=== PATIENT | female | born 1950 | race Caucasian/White ===

== ENCOUNTER 2017-04-21 14:44 | Emergency (ER) | payer OTHER ==
[~2017-04-21] VITALS: Ht 157.5 cm; Wt 83.9 kg
[2017-04-21] MEDS ORDERED: LIDOCAINE 1%-EPI 1:100,000 50 ML VIAL IJ ONE (15:00)
[2017-04-21 15:01] VITALS: BP 126/81
== END 2017-04-21 15:20 | disposition home or self-care (01) ==
LOC: ER 14:46
DX: S61.231A Puncture wound without foreign body of left index finger without damage to nail, initial encounter (principal); E78.5 Hyperlipidemia, unspecified; I10 Essential (primary) hypertension; Z90.89 Acquired absence of other organs; Z98.890 Other specified postprocedural states; Z88.8 Allergy status to other drugs, medicaments and biological substances; W27.2XXA Contact with scissors, initial encounter; Y93.89 Activity, other specified; Y92.89 Other specified places as the place of occurrence of the external cause; Y99.9 Unspecified external cause status
CPT/HCPCS: 99283; A4606; J3490; Z7610

== ENCOUNTER 2017-10-14 19:34 | Inpatient (IN) | payer OTHER ==
[~2017-10-14] VITALS: Ht 157.5 cm; Wt 91.2 kg
[2017-10-14] MEDS ORDERED: ONDANSETRON HCL/PF 4 MG/2 ML VIAL ONE (20:27)
[2017-10-14] MEDS ORDERED: MECLIZINE HCL 25 MG TABLET ONE (20:28)
[2017-10-14 20:29] LABS: BASOPHILS % (AUTO) 0.6 % (0.0-2.0); EOSINOPHILS # (AUTO) 0.1 /CMM (0.0-0.7); EOSINOPHILS % (AUTO) 1.3 % (0.0-6.0); HEMATOCRIT 38 % (33-45); HEMOGLOBIN 12.8 g/dL (11.5-14.8); LYMPHOCYTES # (AUTO) 0.8 /CMM (0.8-4.8); LYMPHOCYTES % (AUTO) 10.4 % (20.0-44.0); MEAN CORPUSCULAR HEMOGLOBIN 29 PG (26.0-33.0); MEAN CORPUSCULAR HGB CONC 34 g/dl (31.0-36.0); MEAN CORPUSCULAR VOLUME 86 fL (82-100); MONOCYTES # (AUTO) 0.3 /CMM (0.1-1.30); MONOCYTES % (AUTO) 3.3 % (2.0-12.0); NEUTROPHILS # (AUTO) 6.7 /CMM (1.8-8.9); NEUTROPHILS % (AUTO) 84.4 % (43.0-81.0); PLATELET COUNT (AUTO) 225 /CMM (150-450); RDW COEFFICIENT OF VARIATION 12.9 (11.5-15.0); RED BLOOD CELL COUNT(AUTO) 4.39 MIL/uL (4.0-5.2); WHITE BLOOD COUNT (AUTO) 7.9 K/uL (4.3-11.0)
[2017-10-14] MEDS ORDERED: MECLIZINE HCL 12.5 MG TABLET PO ONE (20:30)
[2017-10-14] MEDS ORDERED: IV NS 0.9% 1,000 ML BAG IV ONE (20:30)
[2017-10-14] MEDS ORDERED: ONDANSETRON HCL/PF 4 MG/2 ML VIAL IVP ONE (20:30)
[2017-10-14 20:39] LABS: CALCIUM, SERUM 9.7 mg/dL (8.5-10.1); CARBON DIOXIDE 32 mmol/L (21-32); CHLORIDE 101 mmol/L (98-107); CREATININE 0.7 mg/dL (0.6-1.3); GLUCOSE 135 mg/dL (74-106); POTASSIUM 3.8 mmol/L (3.5-5.1); SODIUM SERUM 138 mmol/L (136-145); UREA NITROGEN, BLOOD 16 mg/dL (7-18)
[2017-10-14 20:45] LABS: ALANINE AMINOTRANSFERASE 32 U/L (12-78); ALKALINE PHOSPHATASE 120 U/L (46-116); ASPARTATE AMINOTRANSFERASE 45 U/L (15-37); BILIRUBIN,DIRECT 0.1 mg/dL (0.0-0.2); BILIRUBIN,TOTAL 0.3 mg/dL (0.2-1.0); TOTAL PROTEIN, SERUM 7.8 g/dL (6.4-8.2)
[2017-10-14 20:47] LABS: TROPONIN I < 0.017 ng/mL (0.00-0.056)
[2017-10-14 20:48] LABS: INR 0.95 (0.87-1.13); PROTHROMBIN TIME 9.9 SECS (9.5-12.7)
--- NOTE | 2017-10-14 21:05 | NUR ---
URINE SAMPLE COLLECTED AND SENT TO LAB.
--- NOTE | 2017-10-14 21:17 | NUR ---
PT TRANSPORTED TO RADIOLOGY FOR CT HEAD.
[2017-10-14 21:34] LABS: APPEARANCE,URINE Clear (CLEAR); BILIRUBIN,URINE Negative (NEGATIVE); BLOOD, URINE Trace-intact Ery/uL (NEGATIVE); COLOR,URINE Yellow (YELLOW); KETONES,URINE 15 (NEGATIVE); LEUKOCYTE ESTERASE ,URINE Negative (NEGATIVE); NITRITE, URINE Negative (NEGATIVE); PROTEIN,URINE Negative (NEGATIVE); UGLUCOSE Negative (NEGATIVE); UROBILINOGEN,URINE 0.2 EU/dL (0.2)
[2017-10-14 21:37] LABS: BACTERIA,URINE Few /HPF (None Seen); SQUAMOUS EPITHELIAL CELL,UR Rare /HPF (None Seen)
[2017-10-14 21:38] LABS: WBC,URINE 0-2 /HPF (0-3)
--- NOTE | 2017-10-14 22:32 | NUR ---
RUSSELL BLANCHARD, JIMMY FUNK NP TONGUE AND GROOVE MACHINE FEEDER
--- NOTE | 2017-10-14 22:34 | NUR ---
CALLED NURSING SUP. FOR TELE BED
--- NOTE | 2017-10-14 22:42 | NUR ---
PT RESTING QUIETLY, NO ACUTE DISTRESS NOTED, RESP EVEN AND UNLABORED. PT STILL C/O DIZZINESS AT THIS TIME. WILL CONTINUE TO MONITOR PT CLOSELY.
--- NOTE | 2017-10-14 22:54 | NUR ---
TELE 112-1
--- NOTE | 2017-10-14 22:59 | NUR ---
REPORT CALLED TO TELE 1 RADHA KUHN. WILL TRANSPORT PT VIA ACLS PROTOCOL.
[2017-10-14 23:20] VITALS: BP 144/76
--- NOTE | 2017-10-14 23:30 | NUR ---
NURSING CLINICAL NOTE: Pt is newly admitted from ED with a Dx of vertigo,N/V. A&O X 4. on room air,sating well.Connected to the flight operations dispatch clerk, NSR. VSS. denies pain at this moment. pt is complaining of moderate dizziness when moves. fall risk measures are implemented. Will continue to monitor for any changes on the patient condition.
[2017-10-15] VITALS (9 sets, daily range): BP systolic 114–148; BP diastolic 55–83
[2017-10-15] MEDS ORDERED: LOSA1TAB36 PO (00:01)
[2017-10-15] MEDS ORDERED: LEVO125T8 PO (00:01)
[2017-10-15] MEDS ORDERED: SIMV20TA6 PO (00:01)
[2017-10-15] MEDS ORDERED: LATA2.5D7 EACHEYE (00:01)
[2017-10-15] MEDS ORDERED: ASPI-605 PO (00:01)
[2017-10-15] MEDS ORDERED: CHOL20004 PO (00:02)
[2017-10-15] MEDS ORDERED: HYDROCODONE/APAP 5/325MG 1 EACH TABLET PO PRN (00:30)
[2017-10-15] MEDS ORDERED: ONDANSETRON HCL/PF 4 MG/2 ML VIAL IVP PRN (00:30)
[2017-10-15] MEDS ORDERED: MAGNESIUM HYDROXIDE 30 ML UDC PO PRN (00:30)
[2017-10-15] MEDS ORDERED: ENOXAPARIN SODIUM 40 MG/0.4 ML DISP.SYRIN SQ SCH (00:30)
[2017-10-15] MEDS ORDERED: ACETAMINOPHEN 325 MG TABLET PO PRN (00:30)
[2017-10-15] MEDS ORDERED: Z GUARD REMEDY 2 OZ OINT TP PRN (00:30)
[2017-10-15] MEDS ORDERED: ZOLPIDEM TARTRATE 5 MG TABLET PO PRN (00:30)
[2017-10-15] MEDS ORDERED: SIMVASTATIN 20 MG TABLET ONE (00:32)
[2017-10-15] MEDS ORDERED: ENOXAPARIN SODIUM 40 MG/0.4 ML DISP.SYRIN SQ ONE (00:33)
[2017-10-15] MEDS ORDERED: MECLIZINE HCL 12.5 MG TABLET ONE (00:33)
[2017-10-15] MEDS: MECLIZINE HCL 12.5 MG TABLET PO SCH ×3 (00:45→16:01)
[2017-10-15] MEDS: SIMVASTATIN 20 MG TABLET PO SCH ×2 (00:45→17:58)
[2017-10-15] MEDS: IV NS 0.9% 1,000 ML IV PRN ×2 (00:45→16:03)
--- NOTE | 2017-10-15 01:24 | NUR ---
RECRUITMENT OFFICER NOTES SPOKE AND CLARIFIED TO WRECKING SUPERVISOR JIMMY FUNK RE ORDER CTA BRAIN CODE STROKE , PER JIMMY NO NEED TO CALL FOR CODE STROKE , PTS IS IN ER AT THAT TIME , CTA BRAIN CAN BE DONE IN AM, LAB WORKS CAN BE DONE IN AM TOO.
[2017-10-15] MEDS ORDERED: BLOOD SUGAR DIAGNOSTIC 1 EACH STRIP IN SCH (06:00)
[2017-10-15 06:36] LABS: BASOPHILS % (AUTO) 0.6 % (0.0-2.0); EOSINOPHILS % (AUTO) 0.4 % (0.0-6.0); HEMATOCRIT 35 % (33-45); HEMOGLOBIN 11.8 g/dL (11.5-14.8); LYMPHOCYTES # (AUTO) 1.3 /CMM (0.8-4.8); LYMPHOCYTES % (AUTO) 17.6 % (20.0-44.0); MEAN CORPUSCULAR HEMOGLOBIN 29 PG (26.0-33.0); MEAN CORPUSCULAR HGB CONC 34 g/dl (31.0-36.0); MEAN CORPUSCULAR VOLUME 86 fL (82-100); MONOCYTES # (AUTO) 0.3 /CMM (0.1-1.30); MONOCYTES % (AUTO) 4.3 % (2.0-12.0); NEUTROPHILS # (AUTO) 5.9 /CMM (1.8-8.9); NEUTROPHILS % (AUTO) 77.1 % (43.0-81.0); PLATELET COUNT (AUTO) 214 /CMM (150-450); RDW COEFFICIENT OF VARIATION 12.9 (11.5-15.0); RED BLOOD CELL COUNT(AUTO) 4.04 MIL/uL (4.0-5.2); WHITE BLOOD COUNT (AUTO) 7.5 K/uL (4.3-11.0)
[2017-10-15 06:44] LABS: INR 0.95 (0.87-1.13); PROTHROMBIN TIME 9.9 SECS (9.5-12.7)
[2017-10-15 06:47] LABS: CALCIUM, SERUM 8.7 mg/dL (8.5-10.1); CREATININE 0.7 mg/dL (0.6-1.3); POTASSIUM 3.5 mmol/L (3.5-5.1)
[2017-10-15] MEDS: BLOOD SUGAR DIAGNOSTIC 1 EACH STRIP IN SCH ×4 (06:49→22:51)
[2017-10-15 06:57] LABS: ALBUMIN 3.3 g/dL (3.4-5.0); BILIRUBIN,TOTAL 0.3 mg/dL (0.2-1.0); TOTAL PROTEIN, SERUM 6.8 g/dL (6.4-8.2)
[2017-10-15 07:03] LABS: THYROID STIMULATING HORMONE 1.657 uIU/mL (0.358-3.74)
[2017-10-15 07:06] LABS: CHOLESTEROL 204 mg/dL (<200); HDL CHOLESTEROL 82 mg/dL (40-60); LDL 103 mg/dL (0-99); TRIGLYCERIDES 85 mg/dL (30-150)
[2017-10-15] MEDS ORDERED: IOHEXOL-350 100 ML VIAL IV ONE (07:45)
[2017-10-15] MEDS ORDERED: CT SWABBABLE VALVE TRANS SET 1 EA INFUS.SET MC ONE (07:45)
[2017-10-15] MEDS ORDERED: IV NS 0.9% 250 ML IV ONE (07:45)
--- NOTE | 2017-10-15 08:00 | NUR ---
WEATHERIZATION TECHNICIAN NOTE PATINT IN BED ALERT , ORIENTED X3 , SIGHED CONSENT FOR CTA BRAIN ORDERED , IN TELE MONITOR SR , ON IVF ORDERED , HL ON LT AC INTACT , PATENT , BED IN LOWEST AND LOCKED POSITION , CALL LIGHT WITHIN REACH, PLAN OF CARE DISCUSSER WITH PATIENT, WILL CONT TO MONITOR CLOSELY
[2017-10-15] MEDS ORDERED: LOSARTAN/HCTZ 50-12.5MG/ 1 EA TABLET PO SCH (09:00)
[2017-10-15] MEDS: LEVOTHYROXINE SODIUM 125 MCG TABLET PO SCH (09:51)
--- NOTE | 2017-10-15 11:51 | NUR ---
POLICY CHANGE CLERKS SUPERVISOR NOTE SPOKE WITH DR PELAEZ AWARE OF CTA ANGIOGRAM , STSTED WILL SEE PATIENT SOON Addendum: 10/15/17 at 1154 by CADENCE RAMIRES RN 2DECHO AND CAROTID DONE ORDERED
[2017-10-15] MEDS ORDERED: MELO-107 PO (14:11)
--- NOTE | 2017-10-15 15:52 | NUR ---
OPTIMIZATION ENGINEER NOTE HE SEEN PATIENT WILL CONT TO MONITOR CLOSELY
[2017-10-15] MEDS: IV 1/2NS 1000 ML 1,000 ML IV PRN (18:03)
--- NOTE | 2017-10-15 18:08 | NUR ---
TANK BUILDER NOTE ORTHOSTATIC BP DONE, START IVF 1/2 NS AT 75 ML,PER HOUR WILL CONT TO MONITOR CLOSELY
--- NOTE | 2017-10-15 18:53 | NUR ---
CLOTH EXAMINER MACHINE NOTE HAVING DINNER ,NOT IN ACUTE DISTRES
--- NOTE | 2017-10-15 20:13 | NUR ---
RN INITIAL NOTE PATENT IN BED ALERT , ORIENTED X3 , IN TELE MONITOR SR , ON IVF ORDERED , HL ON LT AC INTACT , PATENT , BED IN LOWEST AND LOCKED POSITION , CALL LIGHT WITHIN REACH, PLAN OF CARE DISCUSSED WITH PT. WILL CONT TO MONITOR CLOSELY
[2017-10-15] MEDS ORDERED: LATANOPROST EYE DROP 0.005% 2.5 ML BOTTLE EACHEYE SCH (22:00)
[2017-10-15] MEDS: LATANOPROST EYE DROP 0.005% 2.5 ML BOTTLE EACHEYE SCH (22:36)
[2017-10-15] MEDS: ASPIRIN EC 81 MG TABLET.DR PO SCH (22:43)
[2017-10-15] MEDS: ENOXAPARIN SODIUM 40 MG/0.4 ML DISP.SYRIN SQ SCH (22:45)
[2017-10-16] VITALS: BP_SYST 112; BP_SYST 122; BP_DIAS 52; BP_DIAS 68
[2017-10-16] MEDS: MECLIZINE HCL 12.5 MG TABLET PO SCH ×3 (00:13→22:17)
[2017-10-16] MEDS: IV 1/2NS 1000 ML 1,000 ML IV PRN ×2 (01:34→07:50)
[2017-10-16 04:00] VITALS: BP 148/71
--- NOTE | 2017-10-16 06:07 | NUR ---
RN CLOSING NOTE PATENT IN BED ALERT , ORIENTED X3 , IN TELE MONITOR SR , ON IVF ORDERED , HL ON LT AC INTACT , PATENT , BED IN LOWEST AND LOCKED POSITION , CALL LIGHT WITHIN REACH, WILL ENDORSE TO AM RN
--- NOTE | 2017-10-16 07:45 | NUR ---
RN OPEN NOTES RECEIVED REPORT FROM CLINICAL OPERATIONS CONSULTANT NURSE. PATIENT IS IN BED, ALERT AND ORIENTED TO NAME, PLACE AND TIME. NO SIGNS AND SYMPTOMS OF DISTRESS. BED IN LOW POSITION, LOCKED AND TWO SIDE RAILS ARE UP. CALL LIGHT WITH IN REACH FOR SAFETY. SYNTHROID ADMINISTERED AND BLOOD SUGAR CHECKED. WILL CONTINUE TO MONITOR AND ASSESS PATIENT DURING MY SHIFT
[2017-10-16] MEDS: LEVOTHYROXINE SODIUM 125 MCG TABLET PO SCH (07:49)
[2017-10-16] MEDS: BLOOD SUGAR DIAGNOSTIC 1 EACH STRIP IN SCH ×4 (07:49→22:21)
[2017-10-16 07:54] LABS: BASOPHILS % (AUTO) 0.9 % (0.0-2.0); EOSINOPHILS # (AUTO) 0.1 /CMM (0.0-0.7); EOSINOPHILS % (AUTO) 3.3 % (0.0-6.0); HEMATOCRIT 33 % (33-45); HEMOGLOBIN 11.3 g/dL (11.5-14.8); LYMPHOCYTES # (AUTO) 1.6 /CMM (0.8-4.8); LYMPHOCYTES % (AUTO) 34.3 % (20.0-44.0); MEAN CORPUSCULAR HEMOGLOBIN 30 PG (26.0-33.0); MEAN CORPUSCULAR HGB CONC 34 g/dl (31.0-36.0); MEAN CORPUSCULAR VOLUME 87 fL (82-100); MONOCYTES # (AUTO) 0.2 /CMM (0.1-1.30); MONOCYTES % (AUTO) 5.3 % (2.0-12.0); NEUTROPHILS # (AUTO) 2.6 /CMM (1.8-8.9); NEUTROPHILS % (AUTO) 56.2 % (43.0-81.0); PLATELET COUNT (AUTO) 182 /CMM (150-450); RDW COEFFICIENT OF VARIATION 13.2 (11.5-15.0); RED BLOOD CELL COUNT(AUTO) 3.75 MIL/uL (4.0-5.2); WHITE BLOOD COUNT (AUTO) 4.5 K/uL (4.3-11.0)
[2017-10-16 08:00] VITALS: BP 131/73
[2017-10-16 08:49] LABS: CALCIUM, SERUM 8.7 mg/dL (8.5-10.1); CREATININE 0.7 mg/dL (0.6-1.3); PHOSPHORUS 4.2 mg/dL (2.5-4.9); POTASSIUM 3.6 mmol/L (3.5-5.1)
[2017-10-16 12:00] VITALS: BP 154/80
--- NOTE | 2017-10-16 12:00 | NUR ---
IV IS LEAKING. STARTED NEW IV SITE ON LEFT FOREARM 22G. PATIENT TOLERATED PROCEDURE WELL
[2017-10-16] MEDS: LOSARTAN POTASSIUM 50 MG TABLET PO SCH (14:13)
[2017-10-16 16:00] VITALS: BP_SYST 152; BP_SYST 157; BP_DIAS 76; BP_DIAS 89
[2017-10-16] MEDS: SIMVASTATIN 20 MG TABLET PO SCH (16:43)
--- NOTE | 2017-10-16 18:43 | NUR ---
RN CLOSING NOTES PATIENT IS IN BED. ALERT AND ORIENTED TO NAME, PLACE AND TIME. NO SIGNS AND SYMPTOMS OF DISTRESS OR PAIN. IV SITE IS INTACT AND PATENT. BED IN LOW POSITION, LOCKED AND TWO SIDE RAILS ARE UP. CALL LIGHT WITHIN REACH FOR SAFETY. ALL NURSING CARE ANTICIPATED AND ATTENDED FOR. PATIENT KEPT CLEAN AND SAFE. WILL ENDORSE TO AGRICULTURAL EQUIPMENT DESIGN ENGINEER NURSE.
[2017-10-16 20:00] VITALS: BP_SYST 149; BP_SYST 157; BP_DIAS 71; BP_DIAS 76
--- NOTE | 2017-10-16 20:00 | NUR ---
RN INITIAL NOTES RECEIVED PATIENT IN BED. ALERT AND ORIENTED TO NAME, PLACE AND TIME. NO SIGNS AND SYMPTOMS OF DISTRESS OR PAIN. IV SITE IS INTACT AND PATENT. BED IN LOW POSITION, LOCKED AND TWO SIDE RAILS ARE UP. CALL LIGHT WITHIN REACH FOR SAFETY. WILL CONTINUE TO MONITOR PT.
[2017-10-16] MEDS: ENOXAPARIN SODIUM 40 MG/0.4 ML DISP.SYRIN SQ SCH (22:17)
[2017-10-16] MEDS: LATANOPROST EYE DROP 0.005% 2.5 ML BOTTLE EACHEYE SCH (22:23)
[2017-10-16] MEDS: ASPIRIN EC 81 MG TABLET.DR PO SCH (22:33)
[2017-10-17] VITALS: BP 122/68
[2017-10-17] MEDS: IV 1/2NS 1000 ML 1,000 ML IV PRN (01:32)
[2017-10-17 04:00] VITALS: BP 154/85
[2017-10-17] MEDS: MECLIZINE HCL 12.5 MG TABLET PO SCH ×2 (04:37→12:38)
--- NOTE | 2017-10-17 06:15 | NUR ---
RN CLOSING NOTES NO CHANGES IN PTS CONDITION OVER NIGHT. ALERT AND ORIENTED TO NAME, PLACE AND TIME. NO SIGNS AND SYMPTOMS OF DISTRESS OR PAIN. IV SITE IS INTACT AND PATENT. BED IN LOW POSITION, LOCKED AND TWO SIDE RAILS ARE UP. CALL LIGHT WITHIN REACH FOR SAFETY. WILL ENDORSE TO AM RN.
[2017-10-17 08:00] VITALS: BP 193/87
--- NOTE | 2017-10-17 08:00 | NUR ---
SUBCONTRACT ADMINISTRATOR AM NOTES PATENT IN BED ALERT , ORIENTED X3 , IN TELE MONITOR SR , DENIES PAIN OR DISTRESS.ON IVF 1/2 NS AT 75 ML/HR INFUSING WELL HL ON LT WRIST INTACT , PATENT , BED IN LOWEST AND LOCKED POSITION , CALL LIGHT WITHIN REACH, NOTIFIED HE REYES OF PT'S HIGH BP OF 193/87 HR 56 BUT PT DENIES ANY PAIN OR DISTRESS.WILL GIVE COZAAAR 50 MG PO AND WILL RECHECK AFTER 1 HOUR. WILL CONT TO MONITOR CLOSELY
[2017-10-17] MEDS: LEVOTHYROXINE SODIUM 125 MCG TABLET PO SCH (08:41)
[2017-10-17] MEDS: LOSARTAN POTASSIUM 50 MG TABLET PO SCH (08:41)
[2017-10-17] MEDS: BLOOD SUGAR DIAGNOSTIC 1 EACH STRIP IN SCH ×3 (08:41→17:47)
[2017-10-17 12:00] VITALS: BP 167/84
--- NOTE | 2017-10-17 12:00 | NUR ---
RECHECKED BP 167/84 HR 71 WITH 95% RA.DENIES ANY CHEST PAIN OR DISTRESS.NOTIFIED HE REYES NP AND MADE AWARE OF THE HIGH BP.
--- NOTE | 2017-10-17 14:45 | NUR ---
SOLIS received a call from RADHA Stevens stating that pt. would like to speak with SW in regards to advance directives. SW met with pt. bedside. Pt. is alert and oriented x 4. Pt. is pleasant and friendly. SOLIS explained advance directive form to pt. and gave her the form so she can have it completed at a later time. No other social service needs are required at this time. SW is available if needed.
[2017-10-17] MEDS ORDERED: MECL12.582 PO (15:30)
[2017-10-17] MEDS ORDERED: LOSA1TAB36 PO (15:30)
[2017-10-17 16:00] VITALS: BP 178/91
--- NOTE | 2017-10-17 16:22 | NUR ---
PT'S BP IS 178/91 HR 57.NOTIFIED HE REYES WITH ORDERS FOR HYDRALAZINE 25 MG PO X 1
[2017-10-17] MEDS ORDERED: hydrALAZINE HCL 25 MG TABLET PO ONE (16:30)
[2017-10-17 17:09] VITALS: BP 178/91
[2017-10-17] MEDS: SIMVASTATIN 20 MG TABLET PO SCH (17:09)
--- NOTE | 2017-10-17 20:38 | NUR ---
SALES ENABLEMENT LEAD NOTES PATIENT IS BEING DISCHARGED TO HOME.PT IS IN STABLE CONDITION.BP 132/70. PT IS BEING TRANSPORTED BY A FRIEND. ALL DISCHARGE TEACHING, FOLLOW UP INSTRUCTIONS AND PRESCRIPTIONS HAS BEEN GIVEN TO PT. PT VERBALIZE UNDERSTANDING OF ALL DISCHARGE INSTRUCTIONS. PT A&O X4, IV H/L REMOVED. PT HAS ALL PERSONAL BELONGINGS. PT LEFT FLOOR AT 2034 ACCOMPANIED BY FRIEND.
== END 2017-10-17 20:49 | disposition home or self-care (01) | DRG 305 ==
LOC: ER 19:35 → TELE1 23:10 → MEDSG1 10-17 17:09
PROVIDERS: ADMIT Nurse Practitioner Acute Care; ATTEND Nurse Practitioner Acute Care
DX: I10 Essential (primary) hypertension (principal); E78.5 Hyperlipidemia, unspecified; R42 Dizziness and giddiness; Z86.73 Personal history of transient ischemic attack (TIA), and cerebral infarction without residual deficits; Z96.641 Presence of right artificial hip joint; R74.8 Abnormal levels of other serum enzymes
CPT/HCPCS: 36415; 70450-TC; 70496-TC; 70551-TC; 71010-TC; 80048-TC; 80053-TC; 80061-TC; 80076-TC; 80305; 81000-TC; 82962-TC; 83735-TC; 83880; 84100-TC; 84443-TC; 84484-TC; 85025-TC; 85652-TC; 85730-TC; 87081-TC; 87086-TC; 92611-TC; 93307-TC; 93880-TC; J1650; J2405; J3490; J7030; J7050; J8597; Q9967

== ENCOUNTER 2017-10-26 12:45 | Outpatient (CLI) | payer MEDICARE, OTHER ==
[~2017-10-26 12:45] MED LIST: ASPI-605 PO; CHOL20004 PO; LATA2.5D7 EACHEYE; LEVO125T8 PO; LOSA1TAB36 PO; MECL12.582 PO; SIMV20TA6 PO
[2017-10-26 14:31] VITALS: BP 165/89
== END 2017-10-26 23:59 | disposition home or self-care (01) ==
LOC: MSC 12:45
PROVIDERS: ATTEND Internal Medicine
DX: I65.23 Occlusion and stenosis of bilateral carotid arteries (principal); I10 Essential (primary) hypertension; E78.5 Hyperlipidemia, unspecified; E66.01 Morbid (severe) obesity due to excess calories; M19.90 Unspecified osteoarthritis, unspecified site

== ENCOUNTER → 2017-11-23 | Outpatient (CLI) | payer MEDICARE, OTHER ==
[2017-11-23 16:22] VITALS: BP 123/69
== END | disposition home or self-care (01) ==
LOC: MSC 16:19
PROVIDERS: ATTEND Internal Medicine
DX: H81.10 Benign paroxysmal vertigo, unspecified ear (principal); G93.0 Cerebral cysts; I10 Essential (primary) hypertension; E78.5 Hyperlipidemia, unspecified; E66.8 Other obesity

== ENCOUNTER 2018-02-05 14:48 | Emergency (ER) | payer OTHER ==
[~2018-02-05] VITALS: Ht 160 cm; Wt 88.5 kg
--- NOTE | 2018-02-05 15:00 | NUR ---
PT PRESENTED TO THE ER WITH A C/O INTERMITTENT DIZZINESS WHEN STANDING TOO LONG. PT IS ALSO C/O HIGH BP AND IS CURRENTLY ON MEDICATION FOR BLOOD PRESSURE. PT IS ALSO C/O FREQUENT URINATION. PT IS ON MEDICATION FOR FREQUENCY AND IS ALSO ON HCTZ. DR. CAMEJO IS AT THE BEDSIDE.
[2018-02-05 15:29] LABS: BASOPHILS % (AUTO) 0.4 % (0.0-2.0); EOSINOPHILS % (AUTO) 0.5 % (0.0-6.0); HEMATOCRIT 39 % (33-45); HEMOGLOBIN 13.2 g/dL (11.5-14.8); LYMPHOCYTES # (AUTO) 1.1 /CMM (0.8-4.8); LYMPHOCYTES % (AUTO) 13.1 % (20.0-44.0); MEAN CORPUSCULAR HGB CONC 34 g/dl (31.0-36.0); MEAN CORPUSCULAR VOLUME 86 fL (82-100); MONOCYTES # (AUTO) 0.4 /CMM (0.1-1.30); NEUTROPHILS # (AUTO) 7.1 /CMM (1.8-8.9); PLATELET COUNT (AUTO) 276 /CMM (150-450); RDW COEFFICIENT OF VARIATION 13.4 (11.5-15.0); RED BLOOD CELL COUNT(AUTO) 4.52 MIL/uL (4.0-5.2); WHITE BLOOD COUNT (AUTO) 8.6 K/uL (4.3-11.0)
[2018-02-05 15:39] LABS: CALCIUM, SERUM 9.9 mg/dL (8.5-10.1); CARBON DIOXIDE 28 mmol/L (21-32); CHLORIDE 100 mmol/L (98-107); CREATININE 0.8 mg/dL (0.6-1.3); GLUCOSE 112 mg/dL (74-106); POTASSIUM 3.6 mmol/L (3.5-5.1); SODIUM SERUM 138 mmol/L (136-145); UREA NITROGEN, BLOOD 17 mg/dL (7-18)
[2018-02-05 15:43] LABS: INR 0.93 (0.85-1.15)
[2018-02-05 15:44] LABS: ALANINE AMINOTRANSFERASE 19 U/L (12-78); ALBUMIN 4.1 g/dL (3.4-5.0); ALKALINE PHOSPHATASE 93 U/L (46-116); ASPARTATE AMINOTRANSFERASE 21 U/L (15-37); BILIRUBIN,DIRECT 0.1 mg/dL (0.0-0.2); BILIRUBIN,TOTAL 0.4 mg/dL (0.2-1.0)
[2018-02-05 15:47] LABS: TROPONIN I < 0.017 ng/mL (0.00-0.056)
--- NOTE | 2018-02-05 15:47 | NUR ---
PT AMBULATED TO THE BATHROOM WITH A STEADY GAIT.
--- NOTE | 2018-02-05 16:10 | NUR ---
PT APPEARS TO BE RESTING COMFORTABLY. PT STATED THAT SHE STILL HAS MOMENTS OF LIGHTHEADEDNESS. PT'S VSS. NAD NOTED. PT IS ABLE TO AMBULATE WITH A STEADY GAIT AND WITHOUT ASSISTANCE.
[2018-02-05] MEDS ORDERED: MECLIZINE HCL 25 MG TABLET ONE (16:20)
[2018-02-05] MEDS: MECLIZINE HCL 12.5 MG TABLET PO ONE (16:25)
--- NOTE | 2018-02-05 16:29 | NUR ---
PT STATED THAT SHE GOT NEW GLASSES 1 MONTH AGO AND THIS DIZZINESS STARTED 1 MONTH AGO. PT AMBULATED TO THE BATHROOM WITH A STEADY GAIT. PT REC'D MEDICATION ORDERED. Patient discharged to home in stable condition. Written and verbal after care instructions given. Patient verbalizes understanding of instruction AND RX. PT WAS INSTRUCTED NOT TO DRIVE HOME. PT IS GOING TO CALL A FRIEND TO PICK HER UP. VSS.
[2018-02-05 16:31] VITALS: BP 107/53
== END 2018-02-05 16:31 | disposition home or self-care (01) ==
LOC: ER 14:50
DX: I10 Essential (primary) hypertension (principal); R42 Dizziness and giddiness; I70.0 Atherosclerosis of aorta; Z79.82 Long term (current) use of aspirin; Z88.8 Allergy status to other drugs, medicaments and biological substances; Z90.89 Acquired absence of other organs; Z98.890 Other specified postprocedural states
CPT/HCPCS: 36415; 71045-TC; 80048-TC; 80076-TC; 84484-TC; 85025-TC; 85730-TC; A4606; J8597; Z7610

== ENCOUNTER 2021-04-16 12:30 | Emergency (ER) | payer MEDICARE, MEDICAID ==
[~2021-04-16] VITALS: Ht 157.5 cm; Wt 83.9 kg
[~2021-04-16 12:30] MED LIST changes: +LATA2.5D15 EACHEYE; -LATA2.5D7 EACHEYE; +MECL-225 PO; -MECL12.582 PO; +SIMV-46 PO; -SIMV20TA6 PO
[2021-04-16 12:42] VITALS: BP 133/72
[2021-04-16] MEDS ORDERED: BRIM5DRO5 EACHEYE (12:44)
[2021-04-16] MEDS ORDERED: LOSA100T31 PO (12:44)
[2021-04-16] MEDS ORDERED: OMEP40CA21 PO (12:44)
[2021-04-16] MEDS ORDERED: FAMO40TA7 PO (12:44)
[2021-04-16] MEDS ORDERED: LEVO112T7 PO (12:44)
[2021-04-16] MEDS ORDERED: OXYB-58 PO (12:44)
[2021-04-16] MEDS ORDERED: SIMV-49 PO (12:44)
[2021-04-16] MEDS ORDERED: HYDR25TA4 PO (12:44)
--- NOTE | 2021-04-16 13:08 | NUR ---
The patient BIB family member for "Missed a step last night- fell hurt Right foot/ankle". Rates pain 7/10. Denies numbness/tingling in the extremity. Will continue to monitor the patient.
[2021-04-16] MEDS ORDERED: IBUP-1955 PO (15:17)
--- NOTE | 2021-04-16 15:56 | NUR ---
Patient assisted via wheelchair. Daughter at bedside. Rx provided. Patient discharged to home in stable condition. Written and verbal after care instructions given. Patient verbalizes understanding of instruction.
== END 2021-04-16 15:56 | disposition home or self-care (01) ==
LOC: ER 12:33
DX: S82.61XA Displaced fracture of lateral malleolus of right fibula, initial encounter for closed fracture (principal); S92.354A Nondisplaced fracture of fifth metatarsal bone, right foot, initial encounter for closed fracture; I10 Essential (primary) hypertension; I25.10 Atherosclerotic heart disease of native coronary artery without angina pectoris; K21.9 Gastro-esophageal reflux disease without esophagitis; E78.5 Hyperlipidemia, unspecified; E03.9 Hypothyroidism, unspecified; G89.29 Other chronic pain; Z98.890 Other specified postprocedural states; Z88.6 Allergy status to analgesic agent; Z88.8 Allergy status to other drugs, medicaments and biological substances; Z79.899 Other long term (current) drug therapy; Z79.82 Long term (current) use of aspirin; W10.8XXA Fall (on) (from) other stairs and steps, initial encounter; Y93.89 Activity, other specified; Y92.89 Other specified places as the place of occurrence of the external cause; Y99.8 Other external cause status
CPT/HCPCS: 73610-TC; 73630-TC; 73700-TC

== ENCOUNTER 2024-08-10 16:37 | Emergency (ER) | payer BC, MEDICAID ==
[~2024-08-10] VITALS: Ht 154.9 cm; Wt 81.6 kg
[~2024-08-10 16:37] MED LIST changes: +BRIM5DRO5 EACHEYE; +FAMO40TA7 PO; +HYDR25TA4 PO; +IBUP-1955 PO; +LEVO112T7 PO; -LEVO125T8 PO; +LOSA100T31 PO; -LOSA1TAB36 PO; -MECL-225 PO; +OMEP40CA21 PO; +OXYB-58 PO; -SIMV-46 PO; +SIMV-49 PO
[2024-08-10 16:50] VITALS: BP 175/84; TEMP 98.5
[2024-08-10] MEDS: AZITHROMYCIN 250 MG TABLET PO ONE (17:20)
[2024-08-10] MEDS ORDERED: AZITHROMYCIN 250 MG TABLET ONE (17:20)
[2024-08-10] MEDS ORDERED: BENZONATATE 100 MG CAPSULE PO ONE (17:20)
[2024-08-10] MEDS: BENZONATATE 100 MG CAPSULE PO PRN (17:23)
[2024-08-10] MEDS ORDERED: AZIT250T13 PO (17:35)
[2024-08-10] MEDS ORDERED: BENZ-13 PO (17:35)
[2024-08-10 17:56] VITALS: O2SAT 99
== END 2024-08-10 17:56 | disposition home or self-care (01) ==
LOC: ER 16:37
DX: R05.8 Other specified cough (principal); M79.10 Myalgia, unspecified site; E03.9 Hypothyroidism, unspecified; E78.00 Pure hypercholesterolemia, unspecified; I10 Essential (primary) hypertension; K21.9 Gastro-esophageal reflux disease without esophagitis; Z28.310 Unvaccinated for COVID-19; Z79.82 Long term (current) use of aspirin; Z79.899 Other long term (current) drug therapy; Z88.8 Allergy status to other drugs, medicaments and biological substances; Z86.79 Personal history of other diseases of the circulatory system